=== PATIENT | male | born 1970 | race Caucasian/White ===

== ENCOUNTER → 2017-07-28 | Outpatient (CLI) | payer OTHER ==
--- NOTE | 2017-07-28 16:37 | DIAGNOSTIC IMAGING REPORT ---
(TESTICULAR) SCROTUM-CONT HISTORY: Pain EPIDIDYMOORCHITIS COMPARISON: None. FINDINGS: Right testis: Maximum dimension 3.1 cm. Normal vascular flow. 4 mm upper pole cyst. Small hydrocele. Left testis: Maximum dimension 2.9 x 4.7 cm. Normal vascular flow. Mild increase in vascular flow to the left epididymal tail. Small left hydrocele. IMPRESSION: 1. Mild increase in vascular flow to the left epididymis suggesting mild epididymitis. 2. Small bilateral hydroceles. 3. Small cyst upper pole right testis. The above report was generated using voice recognition software. It may contain grammatical, syntax or spelling errors. Electronically signed by: Deacon Lockett M.D. 07/28/2017 4:35 PM Dictated Date/Time: 07/28/2017 4:34 PM
== END | disposition home or self-care (01) ==
LOC: C.ULTR 15:32
PROVIDERS: ATTEND Family Medicine
DX: N45.3 Epididymo-orchitis (principal); N43.3 Hydrocele, unspecified; N44.2 Benign cyst of testis